=== PATIENT | male | born 1950 | race Asian ===

== ENCOUNTER → 2020-02-14 14:45 | Outpatient (CLI) | payer MEDICARE, OTHER, SELFPAY ==
--- NOTE | 2020-02-14 | DI.RAD.S_ITS ---
PROCEDURE: XR ANKLE LT MIN 3V INDICATIONS: LEFT PAIN TECHNIQUE: 3 views of the ankle were acquired. COMPARISON: None. FINDINGS: Bones: No fractures or dislocations. Ankle mortise is normally aligned. No suspicious bony lesions. Soft tissues: No tibiotalar joint effusion. Achilles tendon appears normal. IMPRESSION: Negative examination as above. If the patient's pain or other symptoms persist, consider further evaluation with MRI Dictated by: Kerwin Grady M.D. on 02/14/2020 at 16:04 Approved by: Kerwin Grady M.D. on 02/14/2020 at 16:06
--- NOTE | 2020-02-14 | DI.RAD.S_ITS ---
PROCEDURE: XR KNEE LT 3V INDICATIONS: LEFT PAIN TECHNIQUE: 3 views of the knee were acquired. COMPARISON: None. FINDINGS: Bones: No fractures or dislocations. No suspicious bony lesions. Upper and lower pole spurring of the patella. Soft tissues: Trace joint effusion. No suspicious soft tissue calcifications. IMPRESSION: Patellar spurring Trace joint effusion Dictated by: Kerwin Grady M.D. on 02/14/2020 at 16:06 Approved by: Kerwin Grady M.D. on 02/14/2020 at 16:07
== END ==
PROVIDERS: Referring Provider Family Medicine; Visit Provider Family Medicine
DX: M25.562 Pain in left knee (principal); M12.89 Other specific arthropathies, not elsewhere classified, multiple sites
CPT/HCPCS: 73562; 73610

== ENCOUNTER → 2023-12-10 11:24 | Outpatient (CLI) | payer MEDICARE, OTHER, SELFPAY ==
[2023-12-10 13:00] LABS: Prostate Specific Antigen 3.63 ng/mL (0.10-4.00)
== END ==
PROVIDERS: PCP Family Medicine; Referring Provider Urology; Visit Provider Urology
DX: Z87.898 Personal history of other specified conditions (principal)
CPT/HCPCS: 36415; 84153

== ENCOUNTER → 2024-04-13 13:04 | Outpatient (CLI) | payer MEDICARE, OTHER, SELFPAY ==
[2024-04-13 14:11] LABS: Add Manual Diff / Slide Review NO; Basophils Absolute Auto 0 /uL (0-100); Basophils Percent Auto 0.3 % (0-2); Eosinophils Absolute Auto 100 /uL (0-450); Eosinophils Percent Auto 2.3 % (2-4); Hematocrit 42.1 % (41-53); Hemoglobin 13.3 g/dL (13.5-17.5); Lymphocytes Absolute Auto 1400 /uL (1100-4500); Lymphocytes Percent Auto 26.8 % (25-40); Mean Corpuscular HGB Conc 31.6 % (30-36); Mean Corpuscular Hemoglobin 22.6 PG (26-34); Mean Corpuscular Volume 71.6 fL (80-100); Monocytes Absolute Auto 400 /uL (0-900); Monocytes Percent Auto 8.8 % (3-14); Neutrophils Absolute Auto 3200 /uL (1500-7000); Neutrophils Percent Auto 61.8 % (50-75); Platelet Count 218 X10^3/uL (150-400); Red Blood Cell Count 5.88 X10^6/uL (4.5-5.9); Red Cell Distribution Width 15.6 % (11.6-14.8); White Blood Cell Count 5.1 X10^3/uL (4.5-11.0)
[2024-04-13 14:28] LABS: Alanine Aminotransferase 22 IU/L (<50); Albumin 4.7 g/dL (3.5-5.0); Albumin Globulin Ratio 1.5 (1.0-2.8); Alkaline Phosphatase 102 U/L (38-126); Aspartate Aminotransferase 23 IU/L (17-59); Bilirubin Total 0.7 mg/dL (0.2-1.3); Blood Urea Nitrogen 20 mg/dL (9-20); Calcium 9.2 mg/dL (8.4-10.2); Carbon Dioxide 23 mmol/L (22-32); Chloride 106 mmol/L (98-107); Cholesterol 219 mg/dL (140-199); Estimated Glomerular Filt Rate 51 mL/min (>60); Globulin 3.1 g/dL (1.7-4.1); Glucose 125 mg/dL (80-110); HDL Cholesterol 54 mg/dL (40-60); HEMOLYSIS < 15 (0-50); LDL Cholesterol Calculated 145 mg/dL (<100); Potassium 4.4 mmol/L (3.4-5.1); Sodium 138 mmol/L (137-145); Total Protein 7.8 g/dL (6.3-8.2); Triglycerides 98 mg/dL (35-150); Uric Acid 6.1 mg/dL (3.5-8.5)
[2024-04-13 15:01] LABS: Prostate Specific Antigen 4.47 ng/mL (0.10-4.00)
[2024-04-13 15:08] LABS: Vitamin D 25 Hydroxy (D3) 29.2 ng/mL (30.0-100.0)
[2024-04-13 15:20] LABS: Vitamin B12 861 pg/mL (239-931)
== END ==
LOC: LAB 13:06
PROVIDERS: PCP Family Medicine; Referring Provider Family Medicine; Visit Provider Family Medicine
DX: I10 Essential (primary) hypertension (principal); R97.20 Elevated prostate specific antigen [PSA]; E55.9 Vitamin D deficiency, unspecified; M10.9 Gout, unspecified; E78.41 Elevated Lipoprotein(a); D64.9 Anemia, unspecified
CPT/HCPCS: 36415; 80053; 80061; 82306; 82607; 84153; 84550; 85025

== ENCOUNTER → 2024-04-24 13:55 | Outpatient (CLI) | payer MEDICARE, OTHER, SELFPAY ==
--- NOTE | 2024-04-24 | DI.RAD.S_ITS ---
PROCEDURE: XR CHEST 2V INDICATIONS: cough TECHNIQUE: 2 views of the chest were acquired. COMPARISON: None. FINDINGS: Surgical changes and devices: None. Lungs and pleura: Lungs are clear. No pleural effusions or pneumothorax. Mediastinum: Mediastinal contours are normal. Heart size is normal. Bones and chest wall: No suspicious bony abnormalities. Soft tissues appear unremarkable. IMPRESSION: No acute cardiothoracic process. Dictated by: Jorge Walker M.D. on 04/24/2024 at 16:13 Approved by: Jorge Walker M.D. on 04/24/2024 at 16:14
== END ==
PROVIDERS: PCP Family Medicine; Referring Provider Family Medicine; Visit Provider Family Medicine
DX: R05.9 Cough, unspecified (principal)
CPT/HCPCS: 71046

== ENCOUNTER 2024-09-28 08:18 | Day surgery (SDC) | payer MEDICARE, OTHER, SELFPAY ==
--- NOTE | 2024-09-28 | PATH_ITS ---
[facility] Accession Number: [id number] No. of containers..02 Tissue . 01 Material submitted: . PART A: colon - ASCENDING POLYP PART B: rectum - RECTAL POLYP . 01 Diagnosis: A. ASCENDING COLON POLYP: Tubular adenoma. . B. RECTAL POLYP: Tubular adenoma. MRV 10/04/2024 1412 Local . 01 Electronically signed: . Thierry Curiel MD, PhD, Pathologist NPI- [id number] . 01 Gross description: . Part A: ASCENDING POLYP: Received in formalin is 1 fragment(s) of levin, soft tissue measuring 0.8 x 0.4 x 0.2 cm submitted entirely in 1 cassette(s) Part B: RECTAL POLYP: Received in formalin are 3 fragment(s) of levin, soft tissue measuring 0.2 x 0.2 x 0.2 cm to 0.5 x 0.5 x 0.3 cm submitted entirely in 1 cassette(s) /[place] 10/03/2024 0104 Local . 01 Pathologist provided ICD-10: D12.2, D12.8 . 01 CPT . 416817, 428615 Specimen Comment: A courtesy copy of this report has been sent to [phone] Performed at: [address] [facility] [address], [place], [place] [id number] MD Trev Noonan MD Phone: [phone]
[2024-09-28 09:42] VITALS: BP 179/91; PULSE 107; RESP 15; TEMP 36.1; O2SAT 99
[2024-09-28] MEDS: LACTATED RINGERS 1,000 ML 42 ML IV (09:52)
--- NOTE | 2024-09-28 10:09 | PM.HP.IH.1 ---
History of Present Illness History of Present Illness Date Patient Seen: 09/28/24 Time Patient Seen: 10:09 Chief complaint: Dx Colonoscopy w/poss bx Narrative: Nimesh is a 73 year old man in for a colonoscopy for mild anemia. See the office note from [facility] Medical History Arthritis BPH NOS w/o ur obs/LUTS Diabetes Gout High blood pressure High cholesterol History of elevated PSA Spermatocele of epididymis Family History Mother Hypertension Diabetes mellitus Father Diabetes mellitus Hypertension Brother FH: CVA (cerebrovascular accident) Hyperlipidemia Hypertension Seizure disorder Social History marital status: number of children: 3 household members: spouse Previous occupational history: retired Smoking Status: Former smoker alcohol intake: current substance use type: does not use Type(s) of exercise: walking frequency: 3-4 times per week Meds Home Medications and Allergies Home Medications ?Medication ?Instructions ?Recorded ?Confirmed ?Type atorvastatin 20 mg tablet 20 mg PO QPM 04/02/21 09/28/24 History telmisartan 20 mg tablet 20 mg PO DAILY 04/02/21 09/28/24 History allopurinol 300 mg tablet 300 mg PO DAILY 11/05/22 09/28/24 History sodium,potassium,mag sulfates 17.5 See Rx Instructions PO .COMPLEX 06/27/24 09/28/24 Rx gram-3.13 gram-1.6 gram oral soln #354 mL (Suprep Bowel Prep Kit) Allergies Allergy/AdvReac Type Severity Reaction Status Date / Time No Known Drug Allergies Allergy Verified 09/28/24 09:35 Exam Vital Signs (past 8 hours): - 09/28/24 09:42 Temperature 96.9 F L Pulse Rate 107 H Respiratory Rate 15 Blood Pressure 179/91 H Pulse Oximetry 99 Oxygen Delivery Method Room Air Oxygen Delivery Method Room Air Assessment & Plan Assessment and plan (1) Colon cancer screening: Status: Acute Plan Colonoscopy Time-Based Coding :: [TOTAL MINUTES] spent with patient and on the chart (including review of chart, obtaining history, exam, reviewing outside data, placing orders, documenting exam and treatment plan, and counseling patient) on [DATE]. PROFEE Staffing Account Manager Document charge(s): No
--- NOTE | 2024-09-28 11:11 | PM.OP.COLON ---
Operative Date/Time/Diagnoses Date of procedure: 09/28/24 Time of procedure: 11:11 Pre-op diagnosis: Anemia Post-op diagnosis: same Procedure & Clinicians Study performed: Colonoscopy Same procedure as scheduled: Yes Surgeon: José Mathews Procedure Notes Procedure in detail: Surgeon: José Mathews MD Anesthesia: Tamra Noel CRNA Procedure: The patient was brought to the endoscopy suite, placed in left lateral decubitus position. The patient was connected to monitoring devices. A time-out was performed. Sedation was administered. Once the patient was adequately sedated, a digital rectal exam was performed and was normal. The scope was then inserted and advanced to the cecum where the appendiceal orifice was identified and photographed. The scope was then slowly withdrawn over greater than 6 minutes. The mucosa was thoroughly inspected. There was a small polyp in the ascending colon removed with a cold snare. There was a small polyp in the rectum removed with a cold snare. The scope was retroflexed in the rectum. No other abnormalities were found. The scope was straightened and removed. The patient was awakened and brought to recovery. Scope withdrawal time: 8 minutes Sedation time: 13 minutes EBL: 3 mL Findings: A small polyp in the ascending colon and a small polyp in the rectum Post-procedure Disposition: PACU
[2024-09-28 11:13] VITALS: BP 86/56; PULSE 100; RESP 16; TEMP 36.4; O2SAT 97
[2024-09-28 11:18] VITALS: BP 77/48; PULSE 96; RESP 18; O2SAT 97
[2024-09-28 11:23] VITALS: BP 89/60; PULSE 93; RESP 16; O2SAT 97
[2024-09-28 11:28] VITALS: BP 102/76; PULSE 90; RESP 13; O2SAT 97
[2024-09-28 11:35] VITALS: BP 125/81; PULSE 97; RESP 16; TEMP 36.7; O2SAT 98
--- NOTE | 2024-09-28 11:43 | PM.HP.IH.1 ---
History of Present Illness History of Present Illness Chief complaint: Dx Colonoscopy w/poss bx Narrative: Nimesh is a 73 year old man in for a colonoscopy for mild anemia. See the office note from [facility] Medical History Arthritis BPH NOS w/o ur obs/LUTS Diabetes Gout High blood pressure High cholesterol History of elevated PSA Spermatocele of epididymis Family History Mother Hypertension Diabetes mellitus Father Diabetes mellitus Hypertension Brother FH: CVA (cerebrovascular accident) Hyperlipidemia Hypertension Seizure disorder Social History marital status: number of children: 3 household members: spouse Previous occupational history: retired Smoking Status: Former smoker alcohol intake: current substance use type: does not use Type(s) of exercise: walking frequency: 3-4 times per week Meds Home Medications and Allergies Home Medications ?Medication ?Instructions ?Recorded ?Confirmed ?Type atorvastatin 20 mg tablet 20 mg PO QPM 04/02/21 09/28/24 History telmisartan 20 mg tablet 20 mg PO DAILY 04/02/21 09/28/24 History allopurinol 300 mg tablet 300 mg PO DAILY 11/05/22 09/28/24 History sodium,potassium,mag sulfates 17.5 See Rx Instructions PO .COMPLEX 06/27/24 09/28/24 Rx gram-3.13 gram-1.6 gram oral soln #354 mL (Suprep Bowel Prep Kit) Allergies Allergy/AdvReac Type Severity Reaction Status Date / Time No Known Drug Allergies Allergy Verified 09/28/24 09:35 Exam Vital Signs (past 8 hours): - 09/28/24 09:42 09/28/24 11:13 09/28/24 11:18 Temperature 96.9 F L 97.6 F Pulse Rate 107 H 100 H 96 H Respiratory Rate 15 16 18 Blood Pressure 179/91 H 86/56 L 77/48 L Pulse Oximetry 99 97 97 Oxygen Delivery Method Room Air Room Air Room Air 09/28/24 11:23 09/28/24 11:28 09/28/24 11:35 Temperature 98.1 F Pulse Rate 93 H 90 97 H Respiratory Rate 16 13 16 Blood Pressure 89/60 L 102/76 125/81 Pulse Oximetry 97 97 98 Oxygen Delivery Method Room Air Room Air Room Air Oxygen Delivery Method Room Air Assessment & Plan Assessment and plan (1) Colon cancer screening: Status: Acute Plan Colonoscopy Time-Based Coding :: [TOTAL MINUTES] spent with patient and on the chart (including review of chart, obtaining history, exam, reviewing outside data, placing orders, documenting exam and treatment plan, and counseling patient) on [DATE]. PROFEE Transition Advisor Document charge(s): No
== END 2024-09-28 11:48 | disposition home or self-care (01) ==
PROVIDERS: PCP Family Medicine; Referring Provider Surgery; Visit Provider Surgery
PROC: 0DJD8ZZ Inspection of Lower Intestinal Tract, Via Natural or Artificial Opening Endoscopic (ICD-10-PCS; CPT 45378; principal; 2024-09-28 10:00)
DX: D64.9 Anemia, unspecified (principal); Z87.891 Personal history of nicotine dependence; D12.2 Benign neoplasm of ascending colon; D12.8 Benign neoplasm of rectum
CPT/HCPCS: 45385; J2704

== ENCOUNTER → 2024-12-05 12:07 | Outpatient (CLI) | payer MEDICARE, OTHER, SELFPAY ==
[2024-12-05 15:02] LABS: Prostate Specific Antigen 3.96 ng/mL (0.10-4.00)
== END ==
PROVIDERS: PCP Family Medicine; Referring Provider Urology; Visit Provider Urology
DX: R97.20 Elevated prostate specific antigen [PSA] (principal)
CPT/HCPCS: 36415; 84153